=== PATIENT | female | born 1980 | race Caucasian/White ===

== ENCOUNTER 2024-10-25 07:18 | Day surgery (SDC) | payer MEDICAID ==
[2024-10-25] MEDS ORDERED: Sodium Chloride 0.9% 2.5 ML Syringe FLUSH PRN ×2 (07:48)
[2024-10-25] MEDS ORDERED: Sodium Chloride 0.9% 10 ML Syringe FLUSH PRN ×2 (07:48)
[2024-10-25] MEDS ORDERED: Sodium Chloride 0.9% 20 ML SDV IV PRN (07:48)
[2024-10-25] MEDS: Lactated Ringers 1,000 ML IV SCH (07:51)
[2024-10-25] MEDS ORDERED: Lactated Ringers 1,000 ML IV SCH (08:00)
[2024-10-25] MEDS ORDERED: propofoL 500 MG/50 ML 50 ML ONE (08:13)
[2024-10-25] MEDS ORDERED: dexmedeTOMIDine HCl 200 MCG/2 ML SDV ONE (08:15)
[2024-10-25] MEDS ORDERED: Sodium Chloride 0.9% 20 ML ONE (08:15)
== END 2024-10-25 10:35 | disposition home or self-care (01) ==
LOC: MW.SDS 07:18
PROVIDERS: ATTEND Surgery
DX: D12.3 Benign neoplasm of transverse colon (principal); D12.4 Benign neoplasm of descending colon; K29.50 Unspecified chronic gastritis without bleeding; K20.90 Esophagitis, unspecified without bleeding; K44.9 Diaphragmatic hernia without obstruction or gangrene; K57.30 Diverticulosis of large intestine without perforation or abscess without bleeding; D64.9 Anemia, unspecified; E03.9 Hypothyroidism, unspecified; E11.9 Type 2 diabetes mellitus without complications; E66.9 Obesity, unspecified; Z79.890 Hormone replacement therapy; Z79.899 Other long term (current) drug therapy; Z68.41 Body mass index [BMI] 40.0-44.9, adult
CPT/HCPCS: 36415; 43239; 45380; 45385; 84703; J2704; J7120; 00813; J3490